=== PATIENT | female | born 1975 | race Two or more races ===

== ENCOUNTER 2018-04-23 09:44 | Emergency (ER) | payer OTHER ==
[~2018-04-23] VITALS: Ht 167.6 cm; Wt 154.2 kg
[2018-04-23 10:42] LABS: BILIRUBIN,URINE NEGATIVE (NEG); CLARITY,URINE CLEAR; COLOR,URINE YELLOW; NITRITE,URINE NEGATIVE (NEG); PROTEIN,URINE NEGATIVE (NEG-TRACE); UROBILINOGEN,URINE 0.2 mg/dL (0.2 mg/dL)
--- NOTE | 2018-04-23 10:45 | EKG ---
[facility] [address] [place] [address] Test Date: 2018-04-23 Test Time: 10:40:30 Pat Name: EUGENE CHRISTIANSON Department: Room: Gender: F Erp Programmer: : 1975 Requested By: SNOW ZURITA Order Number: [id number] Reading MD: Ramesh Veliz MD Measurements Intervals [place] Rate: 84 P: 66 CO: 126 QRS: 39 QRSD: 96 T: 35 QT: 398 QTc: 473 Interpretive Statements SINUS RHYTHM Electronically Signed On 04-24-2018 13:47:49 CDT by Ramesh Veliz MD
[2018-04-23 11:04] LABS: SQUAMOUS EPITHELIAL CELL,UR FEW /LPF
[2018-04-23 11:05] LABS: BACTERIA,URINE 0 /HPF (0-FEW); RBC,URINE 0 /HPF (0-2); WBC,URINE OCC /HPF (0-4)
[2018-04-23 11:42] LABS: BASO # 0.1 x10^3/uL (0.0-0.2); BASO % 1 % (0-3); EOS # 0.4 x10^3/uL (0.0-0.7); EOS % 5 % (0-3); HEMOGLOBIN 10.6 g/dL (12.0-15.5); LYMPH % 23 % (24-48); MEAN CORPUSCULAR HEMOGLOBIN 29 pg (25-35); MEAN CORPUSCULAR HGB CONC 34 g/dL (31-37); MEAN CORPUSCULAR VOLUME 85 fL (79-100); MONO # 0.5 x10^3/uL (0.0-1.1); MONO % 6 % (0-9); NEUT # 5.6 x10^3uL (1.8-7.7); NEUT % 65 % (31-73); PLATELET COUNT 223 x10^3/uL (140-400); RED BLOOD COUNT 3.66 x10^6/uL (3.50-5.40); RED CELL DISTRIBUTION WIDTH 15.7 % (11.5-14.5); WHITE BLOOD COUNT 8.7 x10^3/uL (4.0-11.0)
[2018-04-23 11:49] LABS: CALCIUM 8.7 mg/dL (8.5-10.1); CREATININE 0.9 mg/dL (0.6-1.0); GFR 68.7; POTASSIUM 4.3 mmol/L (3.5-5.1)
[2018-04-23 11:58] LABS: ALBUMIN 3.2 g/dL (3.4-5.0); ALBUMIN/GLOBULIN RATIO 0.8 (1.0-1.7); TOTAL BILIRUBIN 0.3 mg/dL (0.2-1.0); TOTAL PROTEIN 7.1 g/dL (6.4-8.2)
[2018-04-23] MEDS ORDERED: MORPHINE SULFATE 4 MG/ML VIAL. IV ONE (12:00)
[2018-04-23] MEDS ORDERED: ONDANSETRON PF 4 MG/2 ML VIAL. IV ONE (12:00)
[2018-04-23] MEDS ORDERED: IV NORMAL SALINE 1000ML BAG 1,000 ML IV ONE (12:00)
--- NOTE | 2018-04-23 12:43 | RAD ---
CT ABDOMEN PELVIS WO CONTRAST Indication: left abd pain radiating to back, hx kidney stone, no priors Exposure: One or more of the following individualized dose reduction techniques were utilized for this examination: 1. Automated exposure control 2. Adjustment of the mA and/or kV according to patient size 3. Use of iterative reconstruction technique. Comparison: None are available. Contrast: No intravenous contrast given. No oral contrast per request. Evaluation of solid viscera, bowel and vasculature is compromised by the noncontrast technique. Lower thorax: Minimal right lung base atelectasis or fibrosis. Liver: Unremarkable Spleen: Borderline enlarged, measuring 14 cm long axis. Pancreas: Unremarkable Adrenals: No evidence of mass. Kidneys: No obvious mass. Urinary tracts: Tiny nonobstructive left upper pole calculus. No hydronephrosis or obstructive ureteric calculus. Gallbladder: No calcified stone Aorta: Nonaneurysmal Lymph nodes: Small retroperitoneal lymph nodes. Largest adjacent to the right inferior aorta measures 1.0 cm in short axis. GI tract: Mild retained stool in the colon, more moderate on the right. No acute colitis or evidence of bowel obstruction. Appendix is not clearly visualized. Reproductive organs:No evidence of mass. Urinary bladder: Unremarkable. Peritoneum: No evidence of pneumoperitoneum. No free fluid. Abdominal wall: Unremarkable Spine: Degenerative spondylosis Bones: No destructive process identified. IMPRESSION: 1. Borderline splenomegaly. 2. Borderline enlarged nonspecific retroperitoneal lymph node, up to 1 cm diameter short axis. 3. Tiny nonobstructive left upper pole renal calculus. Electronically signed by: Pillo Peacock MD (04/23/2018 12:40 PM) [facility]
[2018-04-23] MEDS ORDERED: ORPHENADRINE CITRATE 60 MG/2 ML VIAL. IV ONE (13:15)
[2018-04-23 14:04] VITALS: BP 138/67
--- NOTE | 2018-04-23 14:05 | PHYS DOC ---
Past Medical History Past Medical History: COPD, Depression, Hypertension, Other Additional Past Medical Histor: sleep apnea, kidney stones Past Surgical History: , Other Additional Past Surgical Histo: colonscopy, D&C Alcohol Use: Occasionally Drug Use: None Adult General Chief Complaint Chief Complaint: ABDOMINAL PAIN HPI HPI Patient is a 43 year old [f__sex] who presents with [] Review of Systems Review of Systems Constitutional: Denies fever or chills [] Eyes: Denies change in visual acuity, redness, or eye pain [] HENT: Denies nasal congestion or sore throat [] Respiratory: Denies cough or shortness of breath [] Cardiovascular: No additional information not addressed in HPI [] GI: Denies abdominal pain, nausea, vomiting, bloody stools or diarrhea [] : Denies dysuria or hematuria [] Musculoskeletal: Denies back pain or joint pain [] Integument: Denies rash or skin lesions [] Neurologic: Denies headache, focal weakness or sensory changes [] Endocrine: Denies polyuria or polydipsia [] All other systems were reviewed and found to be within normal limits, except as documented in this note. Current Medications Current Medications Current Medications Medications (Trade) Dose Ordered Sig/Camila Start Time Stop Time Status Last Admin Dose Admin Morphine Sulfate (Morphine Sulfate) 4 mg 1X ONCE 04/23/18 12:00 04/23/18 12:01 Cancel Ondansetron HCl (Zofran) 4 mg 1X ONCE 04/23/18 12:00 04/23/18 12:01 DC 04/23/18 14:03 4 MG Orphenadrine Citrate (Norflex) 60 mg 1X ONCE 04/23/18 13:15 04/23/18 13:17 DC 04/23/18 14:03 60 MG Sodium Chloride 1,000 ml @ 1,000 mls/hr 1X ONCE 04/23/18 12:00 04/23/18 12:59 DC 04/23/18 14:04 1,000 MLS/HR Allergies Allergies Allergies Coded Allergies Type Severity Reaction Last Updated Verified cephalexin Allergy Intermediate Rash 03/06/15 No ibuprofen Allergy Intermediate Hives 03/06/15 No loratadine Allergy Intermediate 03/06/15 No pseudoephedrine Allergy Intermediate Hives 03/06/15 No sulfamethoxazole Allergy Intermediate Rash 03/06/15 No trimethoprim Allergy Intermediate Rash 03/06/15 No morphine Adverse Reaction Intermediate 03/06/15 No Physical Exam Physical Exam Constitutional: Well developed, well nourished, no acute distress, non-toxic appearance. [] HENT: Normocephalic, atraumatic, bilateral external ears normal, oropharynx moist, no oral exudates, nose normal. [] Eyes: PERRLA, EOMI, conjunctiva normal, no discharge. [] Neck: Normal range of motion, no tenderness, supple, no stridor. [] Cardiovascular:Heart rate regular rhythm, no murmur [] Lungs & Thorax: Bilateral breath sounds clear to auscultation [] Abdomen: Bowel sounds normal, soft, no tenderness, no masses, no pulsatile masses. [] Skin: Warm, dry, no erythema, no rash. [] Back: No tenderness, no CVA tenderness. [] Extremities: No tenderness, no cyanosis, no clubbing, ROM intact, no edema. [] Neurologic: Alert and oriented X 3, normal motor function, normal sensory function, no focal deficits noted. [] Psychologic: Affect normal, judgement normal, mood normal. [] Current Patient Data Vital Signs Vital Signs Date Time Temp Pulse Resp B/P (MAP) Pulse Ox O2 Delivery O2 Flow Rate FiO2 04/23/18 10:55 98.1 97 18 163/74 (103) 97 Room Air 98.1 Lab Values Laboratory Tests Test 04/23/18 10:25 04/23/18 10:32 04/23/18 11:27 Urine Collection Type Unknown Urine Color Yellow Urine Clarity Clear Urine pH 6.0 Urine Specific [place] 1.020 Urine Protein Negative mg/dL (NEG-TRACE) Urine Glucose (UA) Negative mg/dL (NEG) Urine Ketones (Stick) Negative mg/dL (NEG) Urine Blood Negative (NEG) Urine Nitrite Negative (NEG) Urine Bilirubin Negative (NEG) Urine Urobilinogen Dipstick 0.2 mg/dL (0.2 mg/dL) Urine Leukocyte Esterase Negative (NEG) Urine RBC 0 /HPF (0-2) Urine WBC Occ /HPF (0-4) Urine Squamous Epithelial Cells Few /LPF Urine Bacteria 0 /HPF (0-FEW) Urine Mucus Slight /LPF POC Urine HCG, Qualitative Hcg negative (Negative) White Blood Count 8.7 x10^3/uL (4.0-11.0) Red Blood Count 3.66 x10^6/uL (3.50-5.40) Hemoglobin 10.6 g/dL (12.0-15.5) L Hematocrit 31.0 % (36.0-47.0) L Mean Corpuscular Volume 85 fL (79-100) Mean Corpuscular Hemoglobin 29 pg (25-35) Mean Corpuscular Hemoglobin Concent 34 g/dL (31-37) Red Cell Distribution Width 15.7 % (11.5-14.5) H Platelet Count 223 x10^3/uL (140-400) Neutrophils (%) (Auto) 65 % (31-73) Lymphocytes (%) (Auto) 23 % (24-48) L Monocytes (%) (Auto) 6 % (0-9) Eosinophils (%) (Auto) 5 % (0-3) H Basophils (%) (Auto) 1 % (0-3) Neutrophils # (Auto) 5.6 x10^3uL (1.8-7.7) Lymphocytes # (Auto) 2.0 x10^3/uL (1.0-4.8) Monocytes # (Auto) 0.5 x10^3/uL (0.0-1.1) Eosinophils # (Auto) 0.4 x10^3/uL (0.0-0.7) Basophils # (Auto) 0.1 x10^3/uL (0.0-0.2) D-Dimer (Jewell) 0.40 ug/mlFEU (0.00-0.50) Sodium Level 136 mmol/L (136-145) Potassium Level 4.3 mmol/L (3.5-5.1) Chloride Level 102 mmol/L (98-107) Carbon Dioxide Level 27 mmol/L (21-32) Anion Gap 7 (6-14) Blood Urea Nitrogen 24 mg/dL (7-20) H Creatinine 0.9 mg/dL (0.6-1.0) Estimated GFR (Cockcroft-Gault) 68.7 BUN/Creatinine Ratio 27 (6-20) H Glucose Level 82 mg/dL (70-99) Calcium Level 8.7 mg/dL (8.5-10.1) Total Bilirubin 0.3 mg/dL (0.2-1.0) Aspartate Amino Transferase (AST) 20 U/L (15-37) Alanine Aminotransferase (ALT) 30 U/L (14-59) Alkaline Phosphatase 107 U/L (46-116) Troponin I Quantitative < 0.017 ng/mL (0.000-0.055) Total Protein 7.1 g/dL (6.4-8.2) Albumin 3.2 g/dL (3.4-5.0) L Albumin/Globulin Ratio 0.8 (1.0-1.7) L Lipase 232 U/L (73-393) Laboratory Tests 04/23/18 11:27 Laboratory Tests 04/23/18 11:27 EKG EKG [] Radiology/Procedures Radiology/Procedures [] Course & Med Decision Making Course & Med Decision Making Pertinent Labs and Imaging studies reviewed. (See chart for details) 1359 pt now complaining of tightness in her chest in addition to tightness and pressure in her upper abdomen, added troponin and d-dimer [] Dragon Disclaimer Dragon Disclaimer This electronic medical record was generated, in whole or in part, using a voice recognition dictation system. Departure Departure Impression: Primary Impression: Left-sided low back pain with sciatica Additional Impressions: Abdominal pain Chest pain Disposition: HOME, SELF-CARE Condition: STABLE Referrals: NO PCP (PCP) Patient Instructions: Abdominal Pain (Nonspecific), Chest Pain (Nonspecific)- Brief, Sciatica with Rehab-SportsMed Additional Instructions: Fill the Prescription and use it as directed. Follow-up with your doctor in the next 1-2 days. Return to emergency room if your symptoms worsen. Scripts Orphenadrine Citrate (ORPHENADRINE CITRATE) 100 Mg Tablet.er 1 TAB PO BID PRN for MUSCLE PAIN for 7 Days, #14 TAB 0 Refills Prov: SNOW ZURITA GENERAL LABORER 04/23/18 Problem Qualifiers Primary Impression: Left-sided low back pain with sciatica Chronicity: acute Sciatica laterality: sciatica of left side Qualified Codes: M54.42 - Lumbago with sciatica, left side Additional Impressions: Abdominal pain Abdominal location: left upper quadrant Qualified Codes: R10.12 - Left upper quadrant pain Chest pain Chest pain type: unspecified Qualified Codes: R07.9 - Chest pain, unspecified SNOW ZURITA GENERAL LABORER Apr 23, 2018 14:05
--- NOTE | 2018-04-23 14:20 | RAD ---
Chest, PA and Lateral: Technique: PA and lateral views of the chest were obtained. History: Cough, pneumonia. Comparison: 05/24/2016. Findings: The heart size grossly appears within normal limits. There is no acute infiltrate or visualized pneumothorax. The pleural margins are clear. Impression: No acute cardiopulmonary findings. Electronically signed by: Sami Levine MD (04/23/2018 2:17 PM) [id number]
[2018-04-23] MEDS ORDERED: ORPH100T PO (15:40)
== END 2018-04-23 16:10 | disposition home or self-care (01) ==
LOC: ER 09:44
DX: R10.12 Left upper quadrant pain (principal); R07.89 Other chest pain; M54.42 Lumbago with sciatica, left side; J44.9 Chronic obstructive pulmonary disease, unspecified; I10 Essential (primary) hypertension; Z88.1 Allergy status to other antibiotic agents; Z88.2 Allergy status to sulfonamides; Z88.5 Allergy status to narcotic agent; Z88.8 Allergy status to other drugs, medicaments and biological substances
CPT/HCPCS: 36415; 71046; 74176; 80053; 81001; 81025; 83690; 84484; 85025; 85379; 93005; 96374; 96375; 99285; J2360; J2405; J7030

== ENCOUNTER 2020-02-14 05:56 | Emergency (ER) | payer OTHER ==
[~2020-02-14] VITALS: Ht 175.3 cm; Wt 136.4 kg
[~2020-02-14 05:56] MED LIST: ORPH100T PO
[2020-02-14 06:27] LABS: BASO # 0.1 x10^3/uL (0.0-0.2); BASO % 1 % (0-3); EOS # 0.1 x10^3/uL (0.0-0.7); EOS % 2 % (0-3); HEMATOCRIT 24.8 % (36.0-47.0); HEMOGLOBIN 7.7 g/dL (12.0-15.5); LYMPH # 1.6 x10^3/uL (1.0-4.8); LYMPH % 22 % (24-48); MEAN CORPUSCULAR HEMOGLOBIN 20 pg (25-35); MEAN CORPUSCULAR HGB CONC 31 g/dL (31-37); MEAN CORPUSCULAR VOLUME 64 fL (79-100); MONO # 0.4 x10^3/uL (0.0-1.1); MONO % 5 % (0-9); NEUT # 5.1 x10^3/uL (1.8-7.7); NEUT % 70 % (31-73); PLATELET COUNT 279 x10^3/uL (140-400); RED BLOOD COUNT 3.87 x10^6/uL (3.50-5.40); RED CELL DISTRIBUTION WIDTH 20.4 % (11.5-14.5); WHITE BLOOD COUNT 7.2 x10^3/uL (4.0-11.0)
[2020-02-14 06:39] LABS: CALCIUM 8.7 mg/dL (8.5-10.1); CREATININE 1.1 mg/dL (0.6-1.0); GFR 54.2; POTASSIUM 3.6 mmol/L (3.5-5.1)
[2020-02-14 06:45] LABS: ALBUMIN 3.8 g/dL (3.4-5.0); C-REACTIVE PROTEIN 8.8 mg/L (0-3.3); TOTAL BILIRUBIN 0.3 mg/dL (0.2-1.0); TOTAL PROTEIN 7.5 g/dL (6.4-8.2)
[2020-02-14] MEDS ORDERED: IV NORMAL SALINE 1000ML BAG 1,000 ML IV ONE (07:00)
[2020-02-14] MEDS ORDERED: ONDANSETRON PF 4 MG/2 ML VIAL. IVP ONE (07:00)
[2020-02-14] MEDS ORDERED: HALOPERIDOL LACTATE 5 MG/ML VIAL. IVP ONE (07:15)
--- NOTE | 2020-02-14 07:42 | RAD ---
Examination: CHEST AP ONLY History: Reason: sob, covid? 20 / Spl. Instructions: / History: Comparison: None. Findings: AP portable upright frontal view of the chest was obtained. The cardiomediastinal silhouette is normal. Lungs are clear. There is no pneumothorax. No pleural effusion is appreciated. No acute bone abnormality. IMPRESSION: No acute cardiopulmonary process. Electronically signed by: Vitaly Lopez MD (02/14/2020 7:39 AM) [id number]
[2020-02-14 08:06] LABS: U PREG PATIENT NEGATIVE (NEG)
--- NOTE | 2020-02-14 08:43 | PHYS DOC ---
Past Medical History Past Medical History: Anxiety, COPD, Depression, Hypertension, Other Additional Past Medical Histor: sleep apnea, kidney stones Past Surgical History: , Other Additional Past Surgical Histo: colonscopy, D&C Smoking Status: Current Every Day Smoker Alcohol Use: Occasionally Drug Use: None General Adult EDM: Chief Complaint: CHEST PAIN HPI: HPI: Patient is a 44 year old female who presents with heartburn, shortness of cheli ath, chest pain, generally feeling unwell, abdominal pain, nausea, vomiting. Patient states that she felt fine yesterday. Last night she drank a liter of alcohol, smoked 2 packs of cigarettes, and smoked methamphetamines. She states she is felt sick since that time. She has had multiple episodes of vomiting. She feels a pressure-like pain in the middle of her chest. The pain does not radiate. She does have worsening pain with deep breaths. She feels very short of breath but denies any wheezing. She has a history of COPD. She states that she does cough and have shortness of breath after she smokes. She denies any known fevers, chills, sweats, exposures. Review of Systems: Review of Systems: General: Denies fever, chills, sweats, fatigue Eyes: Denies drainage, blurred vision, eye redness HENT: Denies rhinorrhea, sore throat, earache Respiratory: Reports shortness of breath, cough Cardiac: Reports palpitations, chest pain GI: Reports abdominal pain, Nausea, vomiting MSK: Denies back pain, neck pain Skin: Denies rash, jaundice Neuro: Reports headache, dizziness Psychiatric: Denies SI/HI Heart Score: Risk Factors: Risk Factors: DM, Current or recent (<one month) smoker, HTN, HLP, family history of CAD, obesity. Risk Scores: Score 0 - 3: 2.5% MACE over next 6 weeks - Discharge Home Score 4 - 6: 20.3% MACE over next 6 weeks - Admit for Clinical Observation Score 7 - 10: 72.7% MACE over next 6 weeks - Early Invasive Strategies Current Medications: Current Medications Medications (Trade) Dose Ordered Sig/Camila Start Time Stop Time Status Last Admin Dose Admin Haloperidol Lactate (Haldol Inj) 5 mg 1X ONCE 02/14/20 07:15 02/14/20 07:16 DC 02/14/20 07:35 5 MG Iohexol (Omnipaque 350 Mg/ml) 80 ml 1X ONCE 02/14/20 09:00 02/14/20 09:01 Ondansetron HCl (Zofran) 4 mg 1X ONCE 02/14/20 07:00 02/14/20 07:01 DC 02/14/20 06:35 4 MG Sodium Chloride 1,000 ml @ 30 mls/hr 1X ONCE 02/14/20 07:00 02/15/20 16:19 02/14/20 07:35 30 MLS/HR Allergies: Allergies: Allergies Coded Allergies Type Severity Reaction Last Updated Verified cephalexin Allergy Intermediate Rash 03/06/15 No ibuprofen Allergy Intermediate Hives 03/06/15 No loratadine Allergy Intermediate 03/06/15 No pseudoephedrine Allergy Intermediate Hives 03/06/15 No sulfamethoxazole Allergy Intermediate Rash 03/06/15 No trimethoprim Allergy Intermediate Rash 03/06/15 No morphine Adverse Reaction Intermediate 03/06/15 No Physical Exam: PE: General: Awake, alert, NAD. Well Nourished, well hydrated. Cooperative HEENT: Atraumatic, EOMI, PERRL, airway patent, moist oral mucosa Neck: Supple, trachea midline Respiratory: CTA bilaterally, normal effort, no wheezing/crackles CV: Tachycardic, no murmur, cap refill <2 GI: Soft, nondistended, diffuse tenderness, no masses MSK: No obvious deformities Skin: Warm, dry, intact Neuro: A&O x3, speech NL, sensory and motor grossly intact, no focal deficits Psych: Anxious, not suicidal or homicidal Current Patient Data: Labs: Laboratory Tests Test 02/14/20 06:15 02/14/20 07:50 White Blood Count 7.2 x10^3/uL (4.0-11.0) Red Blood Count 3.87 x10^6/uL (3.50-5.40) Hemoglobin 7.7 g/dL (12.0-15.5) L Hematocrit 24.8 % (36.0-47.0) L Mean Corpuscular Volume 64 fL (79-100) L Mean Corpuscular Hemoglobin 20 pg (25-35) L Mean Corpuscular Hemoglobin Concent 31 g/dL (31-37) Red Cell Distribution Width 20.4 % (11.5-14.5) H Platelet Count 279 x10^3/uL (140-400) Neutrophils (%) (Auto) 70 % (31-73) Lymphocytes (%) (Auto) 22 % (24-48) L Monocytes (%) (Auto) 5 % (0-9) Eosinophils (%) (Auto) 2 % (0-3) Basophils (%) (Auto) 1 % (0-3) Neutrophils # (Auto) 5.1 x10^3/uL (1.8-7.7) Lymphocytes # (Auto) 1.6 x10^3/uL (1.0-4.8) Monocytes # (Auto) 0.4 x10^3/uL (0.0-1.1) Eosinophils # (Auto) 0.1 x10^3/uL (0.0-0.7) Basophils # (Auto) 0.1 x10^3/uL (0.0-0.2) Platelet Estimate Pending D-Dimer (Jewell) 0.71 ug/mlFEU (0.00-0.50) H Sodium Level 126 mmol/L (136-145) L Potassium Level 3.6 mmol/L (3.5-5.1) Chloride Level 91 mmol/L (98-107) L Carbon Dioxide Level 16 mmol/L (21-32) L Anion Gap 19 (6-14) H Blood Urea Nitrogen 19 mg/dL (7-20) Creatinine 1.1 mg/dL (0.6-1.0) H Estimated GFR (Cockcroft-Gault) 54.2 BUN/Creatinine Ratio 17 (6-20) Glucose Level 84 mg/dL (70-99) Calcium Level 8.7 mg/dL (8.5-10.1) Total Bilirubin 0.3 mg/dL (0.2-1.0) Aspartate Amino Transferase (AST) 18 U/L (15-37) Alanine Aminotransferase (ALT) 18 U/L (14-59) Alkaline Phosphatase 134 U/L (46-116) H Lactate Dehydrogenase 140 U/L (81-234) Creatine Kinase 147 U/L (26-192) Troponin I Quantitative < 0.017 ng/mL (0.000-0.055) C-Reactive Protein, Quantitative 8.8 mg/L (0-3.3) H YR-Bjo-Q-Type Natriuretic Peptide 32 pg/mL (0-124) Total Protein 7.5 g/dL (6.4-8.2) Albumin 3.8 g/dL (3.4-5.0) Albumin/Globulin Ratio 1.0 (1.0-1.7) Urine Test Negative (NEG) Laboratory Tests 02/14/20 06:15 Laboratory Tests 02/14/20 06:15 Vital Signs: Vital Signs Date Time Temp Pulse Resp B/P (MAP) Pulse Ox O2 Delivery O2 Flow Rate FiO2 02/14/20 06:00 99.2 120 24 165/65 (98) 99 Room Air 99.2 EKG: EKG: [] Radiology/Procedures: Radiology/Procedures: [] Course & Med Decision Making: Course & Med Decision Making Pertinent Labs and Imaging studies reviewed. (See chart for details) Patient is a 44-year-old female who presents to the emergency room with multiple complaints. Patient used a large amount of substances O per night. This is likely the cause of her symptoms. She was feeling well prior to her substance abuse. She is tachycardic and having shortness of breath. Given this work-up was ordered including CBC, BMP, d-dimer, chest x-ray, EKG. EKG does not show any signs of a STEMI. D-dimer is elevated. CT Liana CUSTOMER ENGINEER. Patient was given Zofran, Haldol, fluids for her symptoms. She was able to eat. She is stable at this time. Patient's test results and vitals while in the ED were fully reviewed and discussed with the patient. Patient is stable and at this time does not need admission to the hospital. We have discussed strict return precautions and the importance of following up with their Primary Care Physician. Patient stated understanding and was given an opportunity to ask any questions. Patient is in agreement with plan. Dragon Disclaimer: Dragon Disclaimer: This electronic medical record was generated, in whole or in part, using a voice recognition dictation system. Departure Departure Impression: Primary Impression: Hangover Additional Impression: Methamphetamine abuse Disposition: HOME, SELF-CARE Condition: IMPROVED Referrals: QUIQUE GILBERT MD (PCP) Patient Instructions: Alcohol Intoxication, Chest Pain (Nonspecific), Methamphetamine Abuse, Complications Justicifation of Admission Dx: Justifications for Admission: Justification of Admission Dx: Yes VEGA MCCANN MD Feb 14, 2020 08:43
[2020-02-14] MEDS ORDERED: IOHEXOL 350 MG/ML 100 ML VIAL. IV ONE (09:00)
[2020-02-14 09:09] LABS: ANISOCYTOSIS PRESENT; HYPOCHROMIA PRESENT; PLT ESTIMATE ADEQUATE (ADEQUATE); POLYCHROMASIA PRESENT
[2020-02-14 09:10] LABS: MICROCYTOSIS SLIGHT
--- NOTE | 2020-02-14 09:20 | RAD ---
Study: CT CHEST WITH CONTRAST - PULMONARY ANGIOGRAM History: Shortness of breath. Tachycardia. Chest pain. Comparison: Correlation is made to the CT abdomen/pelvis from 04/23/2018; CT chest 03/06/2015 Technique: Helical CT of the chest performed after the administration of 80 cc Omnipaque 350 intravenous contrast and timed for angiographic evaluation of the pulmonary arteries per PE protocol. Coronal and sagittal 3D MIP reformations were obtained. One or more of the following individualized dose reduction techniques were utilized for this examination: 1. Automated exposure control 2. Adjustment of the mA and/or kV according to patient size 3. Use of iterative reconstruction technique. Findings: Pulmonary Arteries: No main, lobar or segmental pulmonary embolism. Heart/Systemic Vasculature: Nonaneurysmal aorta. Mediastinum: No lymphadenopathy. Lungs: No localized airspace infiltrate. No suspicious pulmonary nodule by size criteria. No pneumothorax or pleural effusion. The central airways are patent. Neck/Axilla/Body Wall: Unremarkable. Upper Abdomen: Hepatic steatosis. The visualized spleen is similar in size to the prior. Possible tiny gallstone in the region of the gallbladder neck, image 151 series 3. The gallbladder is not distended or thick-walled. Bones: No acute or aggressive osseous process. Redemonstration of disc bulges with peripheral mineralization greatest at T5-T6 through T8-T9 and smaller at T3-T4. Associated central canal stenosis that appears moderate. Miscellaneous: None. IMPRESSION: 1. No pulmonary embolism is identified nor other acute abnormality to account for the patient's symptoms. 2. Chronic findings as above. Electronically signed by: YOMI MITCHELL MD (02/14/2020 9:17 AM) [id number]
[2020-02-14 09:23] LABS: BILIRUBIN,URINE NEGATIVE (NEG); CLARITY,URINE CLEAR; COLOR,URINE YELLOW; NITRITE,URINE NEGATIVE (NEG); PH,URINE 5.5 (<5.0-8.0); PROTEIN,URINE NEGATIVE (NEG-TRACE); UROBILINOGEN,URINE 0.2 mg/dL (0.2 mg/dL)
[2020-02-14 09:37] LABS: BACTERIA,URINE MOD /HPF (0-FEW); RBC,URINE OCC /HPF (0-2); SQUAMOUS EPITHELIAL CELL,UR MANY /LPF
[2020-02-14] MEDS ORDERED: IV RINGERS,LACTATED 500ML 500 ML IV ONE (10:15)
--- NOTE | 2020-02-14 11:20 | PHYS DOC ---
Past Medical History Past Medical History: Anxiety, COPD, Depression, Hypertension, Other Additional Past Medical Histor: sleep apnea, kidney stones Past Surgical History: , Other Additional Past Surgical Histo: colonscopy, D&C Smoking Status: Current Every Day Smoker Alcohol Use: Occasionally Drug Use: None General Adult EDM: Chief Complaint: CHEST PAIN HPI: HPI: Patient is a 44 year old [f__sex] who presents with [] Review of Systems: Review of Systems: Constitutional: Denies fever or chills. [] Eyes: Denies change in visual acuity. [] HENT: Denies nasal congestion or sore throat. [] Respiratory: Denies cough or shortness of breath. [] Cardiovascular: Denies chest pain or edema. [] GI: Denies abdominal pain, nausea, vomiting, bloody stools or diarrhea. [] : Denies dysuria. [] Musculoskeletal: Denies back pain or joint pain. [] Integument: Denies rash. [] Neurologic: Denies headache, focal weakness or sensory changes. [] Endocrine: Denies polyuria or polydipsia. [] Lymphatic: Denies swollen glands. [] Psychiatric: Denies depression or anxiety. [] Heart Score: Risk Factors: Risk Factors: DM, Current or recent (<one month) smoker, HTN, HLP, family history of CAD, obesity. Risk Scores: Score 0 - 3: 2.5% MACE over next 6 weeks - Discharge Home Score 4 - 6: 20.3% MACE over next 6 weeks - Admit for Clinical Observation Score 7 - 10: 72.7% MACE over next 6 weeks - Early Invasive Strategies Current Medications: Current Medications Medications (Trade) Dose Ordered Sig/Camila Start Time Stop Time Status Last Admin Dose Admin Haloperidol Lactate (Haldol Inj) 5 mg 1X ONCE 02/14/20 07:15 02/14/20 07:16 DC 02/14/20 07:35 5 MG Iohexol (Omnipaque 350 Mg/ml) 80 ml 1X ONCE 02/14/20 09:00 02/14/20 09:01 Ondansetron HCl (Zofran) 4 mg 1X ONCE 02/14/20 07:00 02/14/20 07:01 DC 02/14/20 06:35 4 MG Sodium Chloride 1,000 ml @ 30 mls/hr 1X ONCE 02/14/20 07:00 02/15/20 16:19 02/14/20 07:35 30 MLS/HR Allergies: Allergies: Allergies Coded Allergies Type Severity Reaction Last Updated Verified cephalexin Allergy Intermediate Rash 03/06/15 No ibuprofen Allergy Intermediate Hives 03/06/15 No loratadine Allergy Intermediate 03/06/15 No pseudoephedrine Allergy Intermediate Hives 03/06/15 No sulfamethoxazole Allergy Intermediate Rash 03/06/15 No trimethoprim Allergy Intermediate Rash 03/06/15 No morphine Adverse Reaction Intermediate 03/06/15 No Physical Exam: PE: Constitutional: Well developed, well nourished, no acute distress, non-toxic appearance. [] HENT: Normocephalic, atraumatic, bilateral external ears normal, oropharynx moist, no oral exudates, nose normal. [] Eyes: PERRLA, EOMI, conjunctiva normal, no discharge. [] Neck: Normal range of motion, no tenderness, supple, no stridor. [] Cardiovascular:Heart rate regular rhythm, no murmur [] Lungs & Thorax: Bilateral breath sounds clear to auscultation [] Abdomen: Bowel sounds normal, soft, no tenderness, no masses, no pulsatile mass es. [] Skin: Warm, dry, no erythema, no rash. [] Back: No tenderness, no CVA tenderness. [] Extremities: No tenderness, no cyanosis, no clubbing, ROM intact, no edema. [] Neurologic: Alert and oriented X 3, normal motor function, normal sensory function, no focal deficits noted. [] Psychologic: Affect normal, judgement normal, mood normal. [] Current Patient Data: Labs: Laboratory Tests Test 02/14/20 06:15 02/14/20 07:50 White Blood Count 7.2 x10^3/uL (4.0-11.0) Red Blood Count 3.87 x10^6/uL (3.50-5.40) Hemoglobin 7.7 g/dL (12.0-15.5) L Hematocrit 24.8 % (36.0-47.0) L Mean Corpuscular Volume 64 fL (79-100) L Mean Corpuscular Hemoglobin 20 pg (25-35) L Mean Corpuscular Hemoglobin Concent 31 g/dL (31-37) Red Cell Distribution Width 20.4 % (11.5-14.5) H Platelet Count 279 x10^3/uL (140-400) Neutrophils (%) (Auto) 70 % (31-73) Lymphocytes (%) (Auto) 22 % (24-48) L Monocytes (%) (Auto) 5 % (0-9) Eosinophils (%) (Auto) 2 % (0-3) Basophils (%) (Auto) 1 % (0-3) Neutrophils # (Auto) 5.1 x10^3/uL (1.8-7.7) Lymphocytes # (Auto) 1.6 x10^3/uL (1.0-4.8) Monocytes # (Auto) 0.4 x10^3/uL (0.0-1.1) Eosinophils # (Auto) 0.1 x10^3/uL (0.0-0.7) Basophils # (Auto) 0.1 x10^3/uL (0.0-0.2) Platelet Estimate Pending D-Dimer (Jewell) 0.71 ug/mlFEU (0.00-0.50) H Sodium Level 126 mmol/L (136-145) L Potassium Level 3.6 mmol/L (3.5-5.1) Chloride Level 91 mmol/L (98-107) L Carbon Dioxide Level 16 mmol/L (21-32) L Anion Gap 19 (6-14) H Blood Urea Nitrogen 19 mg/dL (7-20) Creatinine 1.1 mg/dL (0.6-1.0) H Estimated GFR (Cockcroft-Gault) 54.2 BUN/Creatinine Ratio 17 (6-20) Glucose Level 84 mg/dL (70-99) Calcium Level 8.7 mg/dL (8.5-10.1) Total Bilirubin 0.3 mg/dL (0.2-1.0) Aspartate Amino Transferase (AST) 18 U/L (15-37) Alanine Aminotransferase (ALT) 18 U/L (14-59) Alkaline Phosphatase 134 U/L (46-116) H Lactate Dehydrogenase 140 U/L (81-234) Creatine Kinase 147 U/L (26-192) Troponin I Quantitative < 0.017 ng/mL (0.000-0.055) C-Reactive Protein, Quantitative 8.8 mg/L (0-3.3) H QV-Qnb-D-Type Natriuretic Peptide 32 pg/mL (0-124) Total Protein 7.5 g/dL (6.4-8.2) Albumin 3.8 g/dL (3.4-5.0) Albumin/Globulin Ratio 1.0 (1.0-1.7) Urine Test Negative (NEG) Laboratory Tests 02/14/20 06:15 Laboratory Tests 02/14/20 06:15 Vital Signs: Vital Signs Date Time Temp Pulse Resp B/P (MAP) Pulse Ox O2 Delivery O2 Flow Rate FiO2 02/14/20 06:00 99.2 120 24 165/65 (98) 99 Room Air 99.2 EKG: EKG: [] Radiology/Procedures: Radiology/Procedures: [] Course & Med Decision Making: Course & Med Decision Making Pertinent Labs and Imaging studies reviewed. (See chart for details) [] Dragon Disclaimer: Dragon Disclaimer: This electronic medical record was generated, in whole or in part, using a voice recognition dictation system. Departure Departure Referrals: QUIQUE GILBERT MD (PCP) Justicifation of Admission Dx: Justifications for Admission: Justification of Admission Dx: No VEGA MCCANN MD Feb 14, 2020 11:20
[2020-02-14 12:16] VITALS: BP 98/44
--- NOTE | 2020-02-16 14:27 | EKG ---
[facility] [address] [place] [id number] Test Date: 2020-02-14 Test Time: 06:09:09 Pat Name: EUGENE CHRISTIANSON Department: Room: Gender: F [employer] Clerk: : [id number] Requested By: VEGA MCCANN Order Number: [id number] Reading MD: Measurements Intervals [place] Rate: 112 P: -14 VT: 92 QRS: 28 QRSD: 106 T: 23 QT: 370 QTc: 507 Interpretive Statements SINUS TACHYCARDIA INCOMPLETE RIGHT BUNDLE BRANCH BLOCK QRS(T) CONTOUR ABNORMALITY CONSIDER INFERIOR MYOCARDIAL DAMAGE POSSIBLY ABNORMAL ECG RI6.02 No previous ECG available for comparison
== END 2020-02-14 12:21 | disposition home or self-care (01) ==
LOC: ER 05:56
DX: F10.129 Alcohol abuse with intoxication, unspecified (principal); Y90.9 Presence of alcohol in blood, level not specified; F15.10 Other stimulant abuse, uncomplicated; R12 Heartburn; R06.02 Shortness of breath; R07.89 Other chest pain; R10.84 Generalized abdominal pain; R11.2 Nausea with vomiting, unspecified; J44.9 Chronic obstructive pulmonary disease, unspecified; I10 Essential (primary) hypertension; Z87.442 Personal history of urinary calculi; F17.210 Nicotine dependence, cigarettes, uncomplicated; Z88.1 Allergy status to other antibiotic agents; Z88.2 Allergy status to sulfonamides; Z88.5 Allergy status to narcotic agent; Z88.8 Allergy status to other drugs, medicaments and biological substances
CPT/HCPCS: 36415; 71045; 71275; 80053; 81001; 81025; 82550; 83615; 83880; 84484; 85025; 85379; 86140; 96361; 96374; 96375; 99285; J1630; J2405; J7030; J7120; 93005